=== PATIENT | male | born 1985 | race Asian ===

== ENCOUNTER 2018-12-15 23:15 | Emergency (ER) | payer SELFPAY ==
[~2018-12-15] VITALS: Ht 170.2 cm; Wt 76.7 kg
[2018-12-15 23:21] VITALS: Ht 170.2 cm; Wt 76.7 kg
[2018-12-16 00:06] VITALS: BP 155/93
== END 2018-12-16 00:06 | disposition home or self-care (01) ==
LOC: ED 23:15
DX: S61.211A Laceration without foreign body of left index finger without damage to nail, initial encounter (principal); R03.0 Elevated blood-pressure reading, without diagnosis of hypertension; W26.0XXA Contact with knife, initial encounter; Y93.89 Activity, other specified; Y92.89 Other specified places as the place of occurrence of the external cause; Y99.8 Other external cause status
CPT/HCPCS: J2001